=== PATIENT | female | born 1995 ===

== ENCOUNTER 2017-04-26 09:30 | Emergency (ER) | payer MEDICAID, OTHER ==
[2017-04-26 09:38] VITALS: RESP 18; TEMP 98.9; O2SAT 98
[2017-04-26] MEDS ORDERED: Sodium Chloride 0.9% 1,000 ML IV STA (09:50)
[2017-04-26 09:56] LABS: URINE BILIRUBIN SMALL (NEGATIVE); URINE BLOOD NEGATIVE (NEGATIVE); URINE GLUCOSE (UA) NEGATIVE (NEGATIVE); URINE LEUKOCYTE ESTERASE NEGATIVE Leu/uL (NEGATIVE); URINE NITRATE NEGATIVE (NEGATIVE); URINE PROTEIN 30 mg/dL (<30 mg/dL)
--- NOTE | 2017-04-26 09:56 | ED PDOC ---
Arrival/HPI - General Chief Complaint: Abdominal Pain Time Seen by Provider: 04/26/17 09:39 Historian: Patient - History of Present Illness Narrative History of Present Illness (Text): 04/26/17 09:50 21yo female with history of ovarian cyst s/p [place] [facility] [place] with one week history of intermittent stabbing epigastric pain with associated nausea and vomiting. Notes she only vomited twice yesterday, but pain for a week. Pain is usually postprandial. Notes her LMP was February 04. Report history of irregular period. Denies urinary symptoms, diarrhea, constipation, fever, chills, hematemesis, hematochezia, vaginal bleeding/ discharge, chest pain, any other complaint. Past Medical History - Provider Review Nursing Documentation Reviewed: Yes - Infectious Disease Hx of Infectious Diseases: None - Psychiatric Hx Substance Use: No - Surgical History Other/Comment: Left ovary removed, 2016 - Anesthesia Hx Anesthesia: Yes Hx Anesthesia Reactions: No Hx Malignant Hyperthermia: No Family/Social History - Physician Review Nursing Documentation Reviewed: Yes Family/Social History: Unknown Family HX Smoking Status: Unknown If Ever Smoked Hx Alcohol Use: No Hx Substance Use: No Allergies/Home Meds Allergies/Adverse Reactions: Allergies No Known Allergies Allergy (Verified 04/26/17 09:37) Review of Systems - Physician Review All systems were reviewed & negative as marked: Yes - Review of Systems Constitutional: Normal Eyes: Normal ENT: Normal Respiratory: Normal Cardiovascular: Normal Gastrointestinal: Abdominal Pain, Nausea, Vomiting. absent: Constipation, Diarrhea, Hematochezia, Hematemesis Genitourinary Female: Normal Musculoskeletal: Normal Skin: Normal Neurological: Normal Endocrine: Normal Hemo/Lymphatic: Normal Psychiatric: Normal Physical Exam Vital Signs Reviewed: Yes Vital Signs Temp Pulse Resp BP Pulse Ox 04/26/17 11:16 79 18 121/71 98 04/26/17 09:34 98.9 F 84 18 119/74 98 Temperature: Afebrile Blood Pressure: Normal Pulse: Regular Respiratory Rate: Normal Appearance: Positive for: Well-Appearing, Non-Toxic, Comfortable Pain Distress: None Mental Status: Positive for: Alert and Oriented X 3 - Systems Exam Head: Present: Atraumatic, Normocephalic Pupils: Present: PERRL Extroacular Muscles: Present: EOMI Conjunctiva: Present: Normal Mouth: Present: Moist Mucous Membranes Neck: Present: Normal Range of Motion Respiratory/Chest: Present: Clear to Auscultation, Good Air Exchange. No: Respiratory Distress, Accessory Muscle Use Cardiovascular: Present: Regular Rate and Rhythm, Normal S1, S2. No: Murmurs Abdomen: Present: Normal Bowel Sounds, Other (Soft). No: Tenderness, Distention , Peritoneal Signs, Rebound, Guarding, McBurney's Point Tender, Rovsing's Sign Present Back: Present: Normal Inspection Upper Extremity: Present: Normal Inspection. No: Cyanosis, Edema Lower Extremity: Present: Normal Inspection. No: Edema Neurological: Present: GCS=15, CN II-XII Intact, Speech Normal Skin: Present: Warm, Dry, Normal Color. No: Rashes Psychiatric: Present: Alert, Oriented x 3, Normal Insight, Normal Concentration Medical Decision Making ED Course and Treatment: 04/26/17 09:58 21yo female in ED with one week history of intermittent epigastric pain and vomiting x2 yesterday. she was hemodynamically stable in ED. PE is benign. Upreg is positive in ED Labs ordered Pepcid and 1L of NS ordered Transvaginal US ordered Will re evaluate pt. 04/26/17 11:40 LAb reviewed with beta quant [id number] 04/26/17 11:41 US IMPRESSION: 7 weeks 1 day live intrauterine gestation. Approximately 3.5 weeks discordance noted. 159bpm Result was DW the pt. she was given vitamin. Advised to f/u with OB. TRT ED for any new or worsening symptoms - Lab Interpretations Lab Results: 04/26/17 09:55 04/26/17 09:55 Lab Results 04/26/17 09:55: Beta HCG, Quant [id number] H 04/26/17 09:55: Sodium 139, Potassium 3.6, Chloride 103, Carbon Dioxide 23, Anion Gap 17, BUN 10, Creatinine 0.8, Est GFR ( Amer) > 60, Est GFR (Non- Af Amer) > 60, Random Glucose 97, Calcium 10.1, Total Bilirubin 0.9, AST 25, ALT 17, Alkaline Phosphatase 67, Total Protein 8.7 H, Albumin 4.8, Globulin 3.9 , Albumin/Globulin Ratio 1.2 04/26/17 09:55: PT 13.8 H, INR 1.20 H, APTT 31.0 04/26/17 09:55: WBC 5.9, RBC 4.45, Hgb 14.0, Hct 41.3, MCV 92.8, MCH 31.5, MCHC 33.9, RDW 12.0, Plt Count 264, MPV 10.2, Gran % 65.0, Lymph % (Auto) 24.8, Esmeralda % (Auto) 9.3 H, Eos % (Auto) 0.7 L, Baso % (Auto) 0.2, Gran # 3.85, Lymph # 1.5 , Esmeralda # 0.6, Eos # 0.0, Baso # 0.01 04/26/17 09:50: Urine Color Yellow, Urine Appearance Turbid, Urine pH 6.0, Ur Specific [place] >= 1.030, Urine Protein 30 H, Urine Glucose (UA) Negative, Urine Ketones Trace H, Urine Blood Negative, Urine Nitrate Negative, Urine Bilirubin Small H, Urine Urobilinogen 1.0 H, Ur Leukocyte Esterase Negative, Urine RBC Negative, Urine WBC 1 - 3, Ur Epithelial Cells Many, Urine Bacteria Few, Urine Other Mucus, Urine HCG, Qual Positive - RAD Interpretation Radiology Orders: 04/26/17 09:49 OB TRANSVAGINAL [US] Stat - Medication Orders Current Medication Orders: Discontinued Medications Famotidine (Pepcid) 20 mg IVP STAT STA Stop: 04/26/17 09:51 Last Admin: 04/26/17 10:22 Dose: 20 mg IVP Administration Document 04/26/17 10:22 EQ (Rec: 04/26/17 10:22 EQ [id number]) Charges for Administration # of IVP Administrations 1 Sodium Chloride (Sodium Chloride 0.9%) 1,000 mls @ 999 mls/hr IV .Q1H1M STA Stop: 04/26/17 10:50 Last Admin: 04/26/17 10:22 Dose: 999 mls/hr eMAR Start Stop Document 04/26/17 10:22 EQ (Rec: 04/26/17 10:22 EQ [id number]) Intravenous Solution Start Date 04/26/17 Start Time 10:22 Disposition/Present on Arrival - Present on Arrival Any Indicators Present on Arrival: No History of DVT/PE: No History of Uncontrolled Diabetes: No Urinary Catheter: No History of Decub. Ulcer: No History Surgical Site Infection Following: None - Disposition Have Diagnosis and Disposition been Completed?: Yes Diagnosis: , Abdominal pain Disposition: HOME/ ROUTINE Disposition Time: 11:40 Patient Plan: Discharge Patient Problems: Current Active Problems Problem Status Onset Abdominal pain Acute Acute Condition: STABLE Discharge Instructions (ExitCare): Abdominal Pain in (ED) Additional Instructions: follow up with a OB Return to ED for any new symptoms Prescriptions: Multivit/Folic Acid/I [ Plus] 1 tab PO DAILY #30 tab Referrals: Prong Olman Juarez, [Non-Staff] - Follow up with primary Daniel Henriquez MD [Staff Provider] - Follow up with primary [facility] [Outside] - Follow up with primary Forms: [facility] (Yakut)
[2017-04-26 09:58] LABS: URINE APPEARANCE TURBID (CLEAR); URINE COLOR YELLOW (YELLOW)
[2017-04-26 10:01] LABS: HCG,QUALITATIVE URINE POSITIVE (NEGATIVE); URINE BACTERIA FEW (NEG); URINE EPITHELIAL CELLS MANY /hpf (0-5); URINE RBC NEGATIVE /hpf (0-2)
[2017-04-26 10:15] LABS: BASO # 0.01 K/mm3 (0.0-2.0); BASO % 0.2 % (0.0-3.0); EOS % 0.7 % (1.5-5.0); GRAN # 3.85 (1.4-6.5); LYMPH # 1.5 (1.2-3.4); LYMPH % 24.8 % (22.0-35.0); MEAN CELL VOLUME 92.8 fl (80.0-105.0); MEAN CORPUSCULAR HEMOGLOBIN 31.5 pg (25.0-35.0); MEAN CORPUSCULAR HGB CONC 33.9 g/dl (31.0-37.0); MEAN PLATELET VOLUME 10.2 fl (7.0-11.0); MONO # 0.6 (0.1-0.6); MONO % 9.3 % (1.0-6.0); RBC 4.45 10^6/uL (3.5-6.1); WHITE BLOOD COUNT 5.9 10^3/ul (4.5-11.0)
[2017-04-26 10:25] LABS: ALBUMIN 4.8 g/dL (3.0-4.8); ALT/SGPT 17 U/L (7-56); AST/SGOT 25 U/L (14-36); BLOOD UREA NITROGEN 10 mg/dL (7-21); CALCIUM 10.1 mg/dL (8.4-10.5); GFR AFRICAN-AMERICAN > 60; GFR NON-AFRICAN AMERICAN > 60
[2017-04-26 10:26] LABS: ALB/GLOB RATIO 1.2 (1.1-1.8)
[2017-04-26 10:40] LABS: INR 1.2 (0.93-1.08); PROTHROMBIN TIME 13.8 SECONDS (9.4-12.5)
[2017-04-26 11:16] VITALS: BP 121/71; PULSE 79
--- NOTE | 2017-04-26 11:33 | US ---
PROCEDURE: First trimester ultrasound HISTORY: /abdominal pain COMPARISON: None available. TECHNIQUE: Standard protocol for this study/examination. FINDINGS: LMP: 02/09/2017 Prior examinations from the current : None TECHNIQUE: Real-time 2D imaging, duplex and color Doppler. FINDINGS: Cardiac activity: Present Rate: 159 BPM Measurements: Sisters rump length: 1.23 cm Gestational age based on CRL 7 weeks 3 days Gestational age 6 weeks 6 days based on gestational sac measurement 2.27 cm Gestational age derived from LMP: 7 weeks 1 day ROSALINO based on LMP: 11/16/2017 ROSALINO based on biometry: 12/12/2017 Gestational concordance documented Yolk sac identified Uterus: Unremarkable. No Cervical abnormalities: Negative examination for cervical dilatation or effacement. Closed cervix measuring 2.4 cm Subchorionic hemorrhage: None UTERUS: 4.5 x 8.7 cm. ADNEXA: Right: 2.4 x 3.4 cm. Well-circumscribed mass perhaps hemorrhagic or debris laden cyst 1.7 x 2.1 cm. Normal Doppler arterial waveform documented. Left: Not visualized. Fluid in the cul-de-sac: None IMPRESSION: 7 weeks 1 day live intrauterine gestation. Approximately 3.5 weeks discordance noted.
== END 2017-04-26 11:50 | disposition home or self-care (01) ==
LOC: ED 09:30
DX: O26.899 Other specified pregnancy related conditions, unspecified trimester (principal); R10.13 Epigastric pain; Z3A.01 Less than 8 weeks gestation of pregnancy
CPT/HCPCS: 76817; 80053; 81001; 84702; 84703; 85025; 85610; 85730; 96374; 99283; J7040

== ENCOUNTER 2017-06-11 14:23 | Emergency (ER) | payer MEDICAID ==
[2017-06-11 14:26] VITALS: BMI 28.5
[2017-06-11 14:31] VITALS: RESP 18; TEMP 98.7
[2017-06-11] MEDS ORDERED: Sodium Chloride 0.9% 1,000 ML IV ONE (14:44)
--- NOTE | 2017-06-11 14:49 | ED PDOC ---
Arrival/HPI - General Chief Complaint: Syncope Time Seen by Provider: 06/11/17 14:33 Historian: Patient - History of Present Illness Time/Duration: Other (Several days) Symptom Onset: Gradual Symptom Course: Unchanged Severity Level: Mild Activities at Onset: Rest Associated Symptoms (Text): 06/11/17 14:46 Patient complains of a several day history of feeling lightheaded and near syncopal. No vertigo. No headache. No numbness or paresthesia. There is generalized, but no focal, weakness. No nausea vomiting diarrhea. No genitourinary symptoms. On review of systems she also complains of crampy abdominal pain, which lasts on the order of seconds. She is currently pain- free. 1 para 0. No vaginal discharge or bleeding. She had an ultrasound on April 26, which showed a 7 week 1 day IUP. She does not appear ill or uncomfortable. Past Medical History - Infectious Disease Hx of Infectious Diseases: None - Cardiac Hx Cardiac Disorders: No - Pulmonary Hx Respiratory Disorders: No - Neurological Hx Neurological Disorder: No - HEENT Hx HEENT Disorder: No - Renal Hx Renal Disorder: No - Endocrine/Metabolic Hx Endocrine Disorders: No - Hematological/Oncological Hx Blood Disorders: No - Integumentary Hx Dermatological Disorder: No - Musculoskeletal/Rheumatological Hx Musculoskeletal Disorders: No - Gastrointestinal Hx Gastrointestinal Disorders: No - Genitourinary/Gynecological Hx Genitourinary Disorders: No - Psychiatric Hx Psychophysiologic Disorder: No Hx Substance Use: No - Surgical History Other/Comment: Left ovary removed, 2016 - Anesthesia Hx Anesthesia: Yes Hx Anesthesia Reactions: No Hx Malignant Hyperthermia: No Family/Social History - Physician Review Nursing Documentation Reviewed: Yes Family/Social History: Unknown Family HX Smoking Status: Never Smoked Hx Alcohol Use: No Hx Substance Use: No Allergies/Home Meds Allergies/Adverse Reactions: Allergies No Known Allergies Allergy (Verified 06/11/17 14:25) Review of Systems - Physician Review All systems were reviewed & negative as marked: Yes - Review of Systems Constitutional: Fatigue. absent: Fevers Respiratory: absent: SOB, Cough, Sputum, Wheezing Cardiovascular: absent: Chest Pain, Palpitations, Syncope Gastrointestinal: Abdominal Pain. absent: Constipation, Diarrhea, Nausea, Vomiting, Anorexia Genitourinary Female: absent: Dysuria, Frequency, Hematuria, Vaginal Bleeding, Vaginal Discharge Neurological: absent: Headache, Dizziness, Focal Weakness, Gait Changes Physical Exam Vital Signs Temp Pulse Resp BP Pulse Ox 06/11/17 16:30 72 18 118/78 99 06/11/17 14:27 98.7 F 79 18 112/73 100 06/11/17 14:26 98.7 F 83 17 112/73 100 Temperature: Afebrile Blood Pressure: Normal Pulse: Regular Respiratory Rate: Normal Appearance: Positive for: Well-Appearing, Non-Toxic, Comfortable Pain Distress: None Mental Status: Positive for: Alert and Oriented X 3 - Systems Exam Head: Present: Atraumatic, Normocephalic Pupils: Present: PERRL Extroacular Muscles: Present: EOMI Conjunctiva: Present: Normal Ears: Present: NORMAL TM, Normal Canal. No: Erythema Mouth: Present: Moist Mucous Membranes Pharnyx: No: ERYTHEMA, EXUDATE, TONSILS ENLARGED Neck: Present: Normal Range of Motion Respiratory/Chest: Present: Clear to Auscultation, Good Air Exchange. No: Respiratory Distress, Accessory Muscle Use Cardiovascular: Present: Regular Rate and Rhythm, Normal S1, S2. No: Murmurs Abdomen: Present: Normal Bowel Sounds. No: Tenderness, Distention, Peritoneal Signs, Rebound, Guarding Back: Present: Normal Inspection. No: CVA Tenderness, Midline Tenderness, Paraspinal Tenderness Upper Extremity: Present: Normal Inspection. No: Cyanosis, Edema Lower Extremity: Present: Normal Inspection. No: Edema Neurological: Present: GCS=15, CN II-XII Intact, Speech Normal, Motor Func Grossly Intact Skin: Present: Warm, Dry, Normal Color. No: Rashes Psychiatric: Present: Alert, Oriented x 3, Normal Insight, Normal Concentration Medical Decision Making ED Course and Treatment: 06/11/17 14:58 EKG shows normal sinus rhythm rate approximately [address] or T-wave changes 06/11/17 15:58 Feeling better after IV fluids. Workup shows no acute findings. Discharge home to follow up with PMD and [facility]. Follow-up in the ER as needed. - Lab Interpretations Lab Results: 06/11/17 15:05 06/11/17 15:05 Lab Results 06/11/17 15:05: Sodium 138, Potassium 4.3, Chloride 103, Carbon Dioxide 23, Anion Gap 16, BUN 10, Creatinine 0.6 L, Est GFR ( Amer) > 60, Est GFR ( Non-Af Amer) > 60, Random Glucose 79, Calcium 9.7, Total Bilirubin 0.5, AST 30, ALT 42, Alkaline Phosphatase 48, Lactate Dehydrogenase 470, Total Creatine Kinase 32 L, Troponin I < 0.01, Total Protein 7.2, Albumin 4.0, Globulin 3.2, Albumin/Globulin Ratio 1.2 06/11/17 15:05: Urine Color Yellow, Urine Appearance Clear, Urine pH 6.0, Ur Specific Newman >= 1.030, Urine Protein Trace H, Urine Glucose (UA) Negative, Urine Ketones Trace H, Urine Blood Negative, Urine Nitrate Negative, Urine Bilirubin Negative, Urine Urobilinogen 0.2, Ur Leukocyte Esterase Negative, Urine RBC 0 - 2, Urine WBC 1 - 3, Ur Epithelial Cells 6 - 8, Calcium Oxalate Crystal Few, Amorphous Sediment Few, Urine Bacteria Many, Urine Other Uyeast 06/11/17 15:05: WBC 8.5 D, RBC 3.60, Hgb 11.1 L D, Hct 33.1 L, MCV 91.9, MCH 30.8, MCHC 33.5, RDW 12.5, Plt Count 179, MPV 10.2, Gran % 69.0 H, Lymph % (Auto ) 23.1, Floyd % (Auto) 7.6 H, Eos % (Auto) 0.2 L, Baso % (Auto) 0.1, Gran # 5.83 , Lymph # (Auto) 2.0, Floyd # (Auto) 0.6, Eos # (Auto) 0.0, Baso # (Auto) 0.01 - Medication Orders Current Medication Orders: Discontinued Medications Sodium Chloride (Sodium Chloride 0.9%) 1,000 mls @ 500 mls/hr IV ONCE ONE Stop: 06/11/17 16:43 Last Admin: 06/11/17 15:05 Dose: 500 mls/hr eMAR Start Stop Document 06/11/17 15:05 GMD (Rec: 06/11/17 15:05 GMD [id number]) Intravenous Solution Start Date 06/11/17 Start Time 15:05 End Date 06/11/17 End time 17:05 Total Infusion Time 120 Disposition/Present on Arrival - Present on Arrival Any Indicators Present on Arrival: No History of DVT/PE: No History of Uncontrolled Diabetes: No Urinary Catheter: No History of Decub. Ulcer: No History Surgical Site Infection Following: None - Disposition Have Diagnosis and Disposition been Completed?: Yes Diagnosis: Intrauterine , Dehydration, Weakness Disposition: HOME/ ROUTINE Disposition Time: 15:59 Patient Plan: Discharge Condition: IMPROVED Discharge Instructions (ExitCare): Dehydration, Adult (DC), Fatigue (DC), Generalized Weakness (DC), Care, Weakness (ED) Referrals: Sterling Abel [Primary Care Provider] - Follow up with primary Forms: [facility] (Swedish), WORK NOTE
[2017-06-11 15:28] LABS: BASO # 0.01 K/mm3 (0.0-2.0); BASO % 0.1 % (0.0-3.0); EOS % 0.2 % (1.5-5.0); GRAN # 5.83 (1.4-6.5); HEMOGLOBIN 11.1 g/dL (12.0-16.0); LYMPH % 23.1 % (22.0-35.0); MEAN CELL VOLUME 91.9 fl (80.0-105.0); MEAN CORPUSCULAR HEMOGLOBIN 30.8 pg (25.0-35.0); MEAN CORPUSCULAR HGB CONC 33.5 g/dl (31.0-37.0); MEAN PLATELET VOLUME 10.2 fl (7.0-11.0); MONO # 0.6 (0.1-0.6); MONO % 7.6 % (1.0-6.0); RBC 3.6 10^6/uL (3.5-6.1); RED CELL DISTRIBUTION WIDTH 12.5 % (11.5-14.5); URINE BILIRUBIN NEGATIVE (NEGATIVE); URINE BLOOD NEGATIVE (NEGATIVE); URINE GLUCOSE (UA) NEGATIVE (NEGATIVE); URINE LEUKOCYTE ESTERASE NEGATIVE Leu/uL (NEGATIVE); URINE NITRATE NEGATIVE (NEGATIVE); URINE PROTEIN TRACE mg/dL (<30 mg/dL); URINE UROBILINOGEN 0.2 E.U./dL (<1 E.U./dL); WHITE BLOOD COUNT 8.5 10^3/ul (4.5-11.0)
[2017-06-11 15:33] LABS: URINE APPEARANCE CLEAR (CLEAR); URINE COLOR YELLOW (YELLOW)
[2017-06-11 15:37] LABS: ALB/GLOB RATIO 1.2 (1.1-1.8); ALT/SGPT 42 U/L (7-56); AST/SGOT 30 U/L (14-36); BLOOD UREA NITROGEN 10 mg/dL (7-21); CALCIUM 9.7 mg/dL (8.4-10.5); GFR AFRICAN-AMERICAN > 60; GFR NON-AFRICAN AMERICAN > 60; URINE RBC 0 - 2 /hpf (0-2)
[2017-06-11 15:38] LABS: URINE AMORPHOUS SEDIMENT FEW; URINE BACTERIA MANY (NEG); URINE CALCIUM OXALATE CRYSTALS FEW /hpf
[2017-06-11 15:47] LABS: TROPONIN I < 0.01 ng/mL
[2017-06-11 16:31] VITALS: BP 118/78; PULSE 72; O2SAT 99
--- NOTE | 2017-06-12 15:01 | CARD ---
APPROVED REPORT EKG Measurement Heart [id number] <Conclusion> Normal sinus rhythm Normal ECG
== END 2017-06-11 16:30 | disposition home or self-care (01) ==
LOC: ED 14:23
DX: O26.90 Pregnancy related conditions, unspecified, unspecified trimester (principal); R53.1 Weakness; E86.0 Dehydration; Z3A.00 Weeks of gestation of pregnancy not specified
CPT/HCPCS: 80053; 81001; 82550; 83615; 84484; 85025; 87086; 93005; 96360; 96361; 99285; J7040